=== PATIENT | female | born 1990 | race Two or more races ===

== ENCOUNTER 2020-07-08 12:57 | Emergency (ER) | payer BC, OTHER ==
[~2020-07-08] VITALS: Ht 160 cm; Wt 56.7 kg
[2020-07-08 14:50] VITALS: BP 106/66
== END 2020-07-08 16:04 | disposition home or self-care (01) ==
LOC: ER 12:57
DX: U07.1 COVID-19 (principal)
CPT/HCPCS: 71045; 93005